=== PATIENT | female | born 1995 | race American Indian/Alaskan Native ===

== ENCOUNTER 2021-05-04 18:30 | Outpatient (CLI) | payer MEDICAID ==
[2021-05-04 19:04] VITALS: BP 101/59
[2021-05-04 19:43] LABS: Bilirubin,Urine NEG (Negative); Blood,Urine MOD (Negative); Color,Urine Straw (Yellow); Hyaline Casts,Urine 1 /LPF; Protein,Urine <15 mg/dL mg/dL (Negative); Urobilinogen,Urine < 2.0 mg/dL (<2.0)
--- NOTE | 2021-05-04 19:58 | Event Note ---
Date: 05/04/21 [facility] 8 and All ultrasound results WNL per color laboratory technician. Pelvic exam with small speculum: closed/thick cervix with mucousy blood discharge, 2cm clot expressed from vaginal cavity upon inserting speculum; No lacerations or pooling noted. Pt tolerated procedure well. Dr. Colon consulted and discharge home order received for pt to FU in am as scheduled with [facility] and with pelvic rest until appt. Pt agrees to POC. No questions verbalized by pt or SO.
[2021-05-04] MEDS ORDERED: LACTATED RINGERS 1,000 ML IV ONE (20:01)
--- NOTE | 2021-05-04 20:48 | Ultrasound Report ---
ULTRASOUND OBSTETRIC COMPLETE INDICATION / CLINICAL INFORMATION: vaginal bleeding. Clinical Gestational Age (GA) in weeks.days: 29.3 TECHNIQUE: Transabdominal. Transvaginal COMPARISON: None available. FINDINGS: NUMBER: Single PRESENTATION: cephalic PLACENTA: Anteriorly located and free of the os. MATERNAL ADNEXA: No significant abnormality. AMNIOTIC FLUID VOLUME: normal AMNIOTIC FLUID INDEX (TANESHA) in cm (if measured): 17.5 cm ANATOMY: Not evaluated. MEASUREMENTS: - Biparietal Diameter = 7.68 cm = 30.6 weeks.days - Head Circumference = 29.3 cm = 32.2 weeks.days - Abdominal Circumference = 26.94 cm = 31.0 weeks.days - Femur Length = 5.61 cm = 29.4 weeks.days - Estimated Weight (in grams, if calculated): 1616. - Heart Rate (beats per minute): 148 ADDITIONAL FINDINGS: Cervix is 3.4 cm and closed. PERCENTILE ESTIMATED WEIGHT (if calculated): AVERAGE ULTRASOUND AGE (AUA) in weeks.days = a 1.0 IMPRESSION: 1. Single intrauterine with AUA of 31.0 weeks.days 2. Cervix is closed. BIOPHYSICAL PROFILE HISTORY: Vaginal bleeding. FINDINGS: Biophysical profile was performed and normal at 06/14. Signer Name: Guru Alvarez MD Signed: 05/04/2021 8:44 PM Workstation Name: [id number]
== END 2021-05-04 20:00 | disposition home or self-care (01) ==
LOC: TRG 18:30 → APU 18:46 → TRG 20:00
PROVIDERS: ATTEND Obstetrics & Gynecology
DX: Z34.93 Encounter for supervision of normal pregnancy, unspecified, third trimester (principal); Z3A.29 29 weeks gestation of pregnancy
CPT/HCPCS: 59025; 76815; 76816; 76817; 76819; 81001